=== PATIENT | male | born 1960 | race African-American/Black ===

== ENCOUNTER → 2018-11-28 | Outpatient (CLI) | payer OTHER, MEDICAID ==
--- NOTE | 2018-11-28 14:26 | CARD ---
MR#: [id number] Date of Study: 11/28/2018 Ordering Physician: TREA SMITH, Referring Physician: TERA SMITH, Tech: Jeanine Kearney [facility] APPROVED REPORT EXAM: Two-dimensional and M-mode echocardiogram with Doppler and color Doppler. Other Information Quality : AverageHR: 81bpm Rhythm : NSR INDICATION Cardiomyopathy 2D DIMENSIONS RVDd4.0 (2.9-3.5cm)Left Atrium(2D)4.0 (1.6-4.0cm) IVSd1.2 (0.7-1.1cm)Aortic Root(2D)3.9 (2.0-3.7cm) LVDd5.9 (3.9-5.9cm)LVOT Diameter2.0 (1.8-2.4cm) PWd1.3 (0.7-1.1cm)LVDs4.8 (2.5-4.0cm) FS (%) 17.8 %SV62.1 ml LVEF(%)36.4 (>50%) M-Mode DIMENSIONS Left Atrium(MM)4.66 (2.5-4.0cm)Aortic Root3.48 (2.2-3.7cm) Aortic Valve AoV Peak Nilay.161.4cm/sAoV VTI25.3cm AO Peak GR.10.4mmHgLVOT Peak Nilay.89.7cm/s AO Mean GR.5mmHgAVA (VMAX)1.67cm2 AYESHA (VTI)1.70cm2 Mitral Valve MV E Upexqngz18.6cm/sMV DECEL [id number] MV A Mquqdqsb11.7cm/sE/A Ratio0.6 Pulmonary Valve PV Peak Kaiisphl37.8cm/s Tricuspid Valve TR P. Eyemnalh705uy/sRAP [id number] TR Peak Gr.[id number] LEFT VENTRICLE The Left Ventricle is mildly dilated. There is mild concentric left ventricular hypertrophy. The left ventricular systolic function is moderately impaired. The Ejection Fraction is 30-35%. There is glob al hypokinesis of the left ventricle. Transmitral Doppler flow pattern is Grade I-abnormal relaxation pattern. RIGHT VENTRICLE The right ventricle is normal size. There is normal right ventricular wall thickness. The right ventr icular systolic function is normal. ATRIA The left atrium is mildly dilated. The right atrium size is normal. The interatrial septum is intact with no evidence for an atrial septal defect or patent foramen ovale as noted on 2-D or Doppler imagi ng. AORTIC VALVE The aortic valve is trileaflet. The aortic valve is mildly thickened. Doppler and Color Flow revealed no significant aortic regurgitation. There is no significant aortic valvular stenosis. There is no a ortic valvular vegetation. MITRAL VALVE The mitral valve is normal in structure and function. There is no evidence of mitral valve prolapse. There is no mitral valve stenosis. Doppler and Color-flow revealed mild mitral regurgitation. TRICUSPID VALVE The tricuspid valve is normal in structure and function. Doppler and Color Flow revealed trace tricus pid regurgitation. The PA pressure was estimated at 28 mmHg. There is no tricuspid valve prolapse or vegetation. There is no tricuspid valve stenosis. PULMONIC VALVE The pulmonic valve is not well visualized. GREAT VESSELS The aortic root is mildly enlarged. The ascending aorta is normal in size. The IVC is normal in size and collapses >50% with inspiration. PERICARDIAL EFFUSION There is no evidence of significant pericardial effusion. Critical Notification Critical Value: No <Conclusion> The left ventricular systolic function is moderately impaired. The Ejection Fraction is 30-35%. Transmitral Doppler flow pattern is Grade I-abnormal relaxation pattern. Mild mitral regurgitation. Trace tricuspid regurgitation. The PA pressure was estimated at 28 mmHg. There is no evidence of significant pericardial effusion. Signed by : Shakeel Ferreira, Electronically Approved : 11/28/2018 14:25:32
== END | disposition home or self-care (01) ==
LOC: ECHO 13:46
PROVIDERS: ATTEND Internal Medicine Cardiovascular Disease
DX: I34.0 Nonrheumatic mitral (valve) insufficiency (principal); I42.9 Cardiomyopathy, unspecified
CPT/HCPCS: 93306